=== PATIENT | male | born 1990 | race Caucasian/White ===

== ENCOUNTER 2019-06-05 20:41 | Emergency (ER) | payer OTHER, SELFPAY ==
[2019-06-05 20:46] VITALS: BP 137/73; PULSE 103; RESP 18; O2SAT 97
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
[2019-06-05 20:59] VITALS: BP 137/73; PULSE 88; RESP 18; O2SAT 97
== END 2019-06-05 21:00 | disposition home or self-care (01) ==
PROVIDERS: Emergency Provider Emergency Medicine; PCP Family Medicine
DX: R51 Headache (principal); V48.0XXA Car driver injured in noncollision transport accident in nontraffic accident, initial encounter; W22.8XXA Striking against or struck by other objects, initial encounter; Y99.0 Civilian activity done for income or pay
CPT/HCPCS: 99282

== ENCOUNTER 2021-03-10 23:48 | Emergency (ER) | payer BC, SELFPAY ==
[2021-03-11] VITALS: BP 118/84; PULSE 70; RESP 18; TEMP 36.4; O2SAT 98
--- NOTE | 2021-03-11 | RT.EKG_ITS ---
APPROVED REPORT Exam: Resting ECG Reason for Exam: loss of consciousness Patient Location: E HR:68 bpm ECG Measurements Heart Rate 68 AXIS AL 164 P 18 QRSd 100 QRS -10 QT 376 T -4 QTc 400 Conclusion Sinus rhythm...normal P axis, V-rate 60- 99 Borderline T abnormalities, diffuse leads...T flat/neg
--- NOTE | 2021-03-11 | DI.CT_ITS ---
Exam(s) CT BRAIN CTA EXAM: CT BRAIN CTA CLINICAL HISTORY: headache. TECHNIQUE: Imaging Protocol: Both noninfused and contrast infused CT scans of the brain were perform ed. IV Contrast Dose =85 cc Axial computed tomography images with coronal and sagittal reformatted images were created and review ed COMPARISON: No exams were available for comparison FINDINGS: There are no skull fractures nor fluid in the visualized paranasal sinuses. There is no evidence of intracranial hemorrhage, mass effect, or shift of midline structures. There are no extra-axial fluid collections. The ventricles are not enlarged or shifted and there is no blo od within the ventricular system nor within the basal cisterns. There appears to be some subtle hypodensity in the left cerebellar hemisphere, possibly significant. There are no ring enhancing lesions this level nor elsewhere in the brain. No abnormal meningeal en hancement. CTA: Field of view of this CTA study is from the skull base up. Neck was apparently not scanned. The internal carotid arteries are patent in the skull base-carotid canals as well as within the ayanna nous sinuses. Supraclinoid aspects of these vessels are patent and nonaneurysmal. Both A1 segments are patent. Anterior cerebral arteries are patent. No evidence of aneurysm at the level of the ante rior communicating artery. Both middle cerebral arteries are patent. No intraluminal thrombus nor aneurysms. In the posterior circulation the basilar artery is formed at the skull base by both vertebral arterie s and ascends in the midline with normal luminal diameter and no evidence of intraluminal thrombus no r dissection. Distally the basilar artery terminates as posterior cerebral arteries. There is no ev idence of aneurysm at the tip of the basilar artery. IMPRESSION: No evidence of significant stenosis nor occlusion of main intracranial arteries. No evidence of aneu rysms. No significant enhancing intracranial findings. RADIATION DOSE DELIVERED: 1,927.65mGy.cm Total DLP DATA REPOSITORY: All CT scans at this facility are submitted to the National Radiology Data Registry (NRDR) Dose Index Registry (DIR) with the [employer] (ACR). RADIATION OPTIMIZATION: All CT scans at this facility use at least one of these dose optimization te chniques: automated exposure control; mA and/or kV adjustment per patient size (includes targeted exa ms where dose is matched to clinical indication); or iterative reconstruction.
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
[2021-03-11 00:22] LABS: Abs Immature Grans 0.04 10^3/uL (0.0-0.06); Absolute Basophil Count 0.05 10^3/uL (0.0-0.2); Absolute Eosinophil Count 0.07 10^3/uL (0.0-0.7); Absolute Lymphocyte Count 2.13 10^3/uL (1.2-3.4); Absolute Monocyte Count 0.78 10^3/uL (0.1-0.8); Absolute Neutrophil Count 5.49 10^3/uL (1.2-6.7); Basophils % 0.6; Eosinophils % 0.8; HCT 43.1 % (40.0-50.0); HGB 15.3 g/dL (13.5-17.5); Immature Grans % 0.5; Lymphocytes % 24.9; MCH 30.2 pg (27.0-33.0); MCHC 35.5 % (32.0-36.0); MCV 85.2 fL (80-95); Monocytes % 9.1; Neutrophils % 64.1; Nucleated RBC 0 %; Platelet Count 279 10^3/uL (130-400); RBC 5.06 10^6/uL (4.36-5.78); RDW 12.2 % (11.8-14.1); RDW-SD 37.5 fL; WBC 8.56 10^3/uL (4.4-10.8)
[2021-03-11] MEDS: Acetaminophen 500 MG TAB 1000 MG PO (00:23)
[2021-03-11] MEDS: Dexamethasone 10 MG/ML VIAL IVP (00:24)
[2021-03-11] MEDS: Metoclopramide 10 MG/2 ML VIAL IVP (00:24)
[2021-03-11] MEDS: Omnipaque 350 MG/ML 100 ML BTL IJ (00:35)
[2021-03-11] MEDS: Normal Saline - Diluent 50 ML VIAL IV (00:35)
[2021-03-11 00:37] LABS: ALT 34 U/L (16-63); AST 24 U/L (15-37); Albumin 4.3 g/dL (3.4-5.0); Alkaline Phosphatase 72 U/L (46-116); Anion Gap 14.4 mmol/L (3-11); BUN 23 mg/dL (7-18); Bilirubin, Total 0.5 mg/dL (0.2-1.0); CO2 24.6 mmol/L (21.0-32.0); CREATININE 1.1 mg/dL (0.70-1.30); Calcium 8.7 mg/dL (8.5-10.1); Chloride 103 mmol/L (98-107); Glucose 114 mg/dL (74-106); Potassium 4.4 mmol/L (3.5-5.1); Sodium 142 mmol/L (136-145); Total Protein 7.7 g/dL (6.4-8.2)
--- NOTE | 2021-03-11 01:23 | DI.VRAD_ITS ---
PROCEDURE INFORMATION: Exam: CT Angiography Head With Contrast, Arteriography Exam date and time: 03/11/2021 12:09 AM Age: 30 years old Clinical indication: Pain; Headache TECHNIQUE: Imaging protocol: Computed tomography angiography of the head with contrast. Exam focused on the arteries. 3D rendering (Not supervised by radiologist): MIP and/or 3D reconstructed images were created by the technologist. COMPARISON: No relevant prior studies available. FINDINGS: ANTERIOR CIRCULATION: Right internal carotid artery: Unremarkable. Intracranial segment is patent with no significant stenosis. No aneurysm. Right middle cerebral artery: Unremarkable. No occlusion or significant stenosis. No aneurysm. Right anterior cerebral artery: Unremarkable. No occlusion or significant stenosis. No aneurysm. Left internal carotid artery: Unremarkable. Intracranial segment is patent with no significant stenosis. No aneurysm. Left middle cerebral artery: Unremarkable. No occlusion or significant stenosis. No aneurysm. Left anterior cerebral artery: Unremarkable. No occlusion or significant stenosis. No aneurysm. POSTERIOR CIRCULATION: Right vertebral artery: Unremarkable. No occlusion or significant stenosis. No aneurysm. Left vertebral artery: Unremarkable. No occlusion or significant stenosis. No aneurysm. Basilar artery: Unremarkable. No occlusion or significant stenosis. No aneurysm. Right posterior cerebral artery: Unremarkable. No occlusion or significant stenosis. No aneurysm. Left posterior cerebral artery: Unremarkable. No occlusion or significant stenosis. No aneurysm. Brain: No definite mass, mass effect, or midline shift. No abnormal enhancement Cerebral ventricles: No ventriculomegaly. Bones/joints: Unremarkable. No acute fracture. Soft tissues: Unremarkable. IMPRESSION: No large vessel stenosis or occlusion. Dictated and Authenticated by: Deng Patterson MD. Ordering:MARISSA Darby MD
[2021-03-11 01:38] VITALS: BP 121/88; PULSE 78; RESP 16; O2SAT 96
== END 2021-03-11 01:50 | disposition home or self-care (01) ==
PROVIDERS: Emergency Provider Emergency Medicine; PCP Family Medicine
DX: R51.9 Headache, unspecified (principal); R55 Syncope and collapse; R11.2 Nausea with vomiting, unspecified
CPT/HCPCS: 36415; 70496; 80053; 93005; 96374; 96375; 99285; 80320; 85025; 93010; 99284; J1100; J2765; J3490

== ENCOUNTER 2021-09-28 09:19 | Outpatient (CLI) | payer BC, SELFPAY ==
--- NOTE | 2021-09-28 09:15 | RT.EKG_ITS ---
APPROVED REPORT Exam: Resting ECG Reason for Exam: arrythmia Patient Location: O HR:68 bpm ECG Measurements Heart Rate 68 AXIS KS 179 P 19 QRSd 104 QRS -26 QT 377 T 2 QTc 402 Conclusion Sinus rhythm...normal P axis, V-rate 60- 99 Normal Electrocardiogram
== END 2021-09-28 09:20 | disposition home or self-care (01) ==
LOC: DI.CM 09:20
PROVIDERS: PCP Family Medicine; Visit Provider Family Medicine
DX: I49.9 Cardiac arrhythmia, unspecified (principal)
CPT/HCPCS: 93010

== ENCOUNTER 2021-10-22 03:39 | Outpatient (CLI) | payer BC, SELFPAY ==
[2021-10-22 11:27] LABS: ALT 30 U/L (16-63); AST 19 U/L (15-37); Albumin 4.3 g/dL (3.4-5.0); Alkaline Phosphatase 67 U/L (46-116); Anion Gap 9.4 mmol/L (3-11); BUN 23 mg/dL (7-18); Bilirubin, Total 0.4 mg/dL (0.2-1.0); CO2 28.6 mmol/L (21.0-32.0); CREATININE 1.2 mg/dL (0.70-1.30); Calculated LDL 172 mg/dL (<100); Chloride 105 mmol/L (98-107); Cholesterol 237 mg/dL (<200); Glucose 88 mg/dL (74-106); HDL Cholesterol 41 mg/dL (40-60); Potassium 4.1 mmol/L (3.5-5.1); Sodium 143 mmol/L (136-145); Total Protein 7.1 g/dL (6.4-8.2); Triglyceride 123 mg/dL (<150)
== END 2021-10-22 03:40 | disposition home or self-care (01) ==
LOC: LBO 03:39
PROVIDERS: PCP Family Medicine; Visit Provider Family Medicine
DX: Z00.00 Encounter for general adult medical examination without abnormal findings (principal)
CPT/HCPCS: 36415; 80053; 80061

== ENCOUNTER 2022-10-15 20:53 | Outpatient (REF) | payer BC, SELFPAY ==
[2022-10-15 21:28] LABS: HCT 43.8 % (40.0-50.0); HGB 15.2 g/dL (13.5-17.5); MCH 29.4 pg (27.0-33.0); MCHC 34.7 % (32.0-36.0); MCV 85 fL (80-95); MPV 10.6 fL (8.0-11.0); Platelet Count 323 10^3/uL (130-400); RBC 5.17 10^6/uL (4.36-5.78); RDW 12.1 % (11.8-14.1); RDW-SD 37.1 fL; WBC 9.74 10^3/uL (4.4-10.8)
[2022-10-15 21:51] LABS: TSH (W/Ref FT4) 2.14 uIU/mL (0.36-3.74)
[2022-10-15 22:30] LABS: Vitamin B12 602 pg/mL (193-986)
== END 2022-10-15 20:54 | disposition home or self-care (01) ==
LOC: LBN 20:53
PROVIDERS: PCP Family Medicine; Visit Provider Nurse Practitioner Family
DX: R53.83 Other fatigue (principal); R20.2 Paresthesia of skin; M79.601 Pain in right arm; M79.602 Pain in left arm
CPT/HCPCS: 85027; 82607; 84443

== ENCOUNTER → 2023-11-26 03:16 | Outpatient (CLI) | payer BC, SELFPAY ==
--- NOTE | 2023-11-26 08:00 | DI.RAD_ITS ---
Exam(s) RF BARIUM SWALLOW EXAM: RF BARIUM SWALLOW CLINICAL HISTORY: globus sensation,R09.A2 TECHNIQUE: 2D and realtime digital imaging was performed. CONTRAST MATERIAL: Oral barium contrast was administered. COMPARISON: No exams were available for comparison FINDINGS: CHEST X-RAY: The heart and pulmonary vasculature are within normal limits. The lungs are clear. No pl eural effusion or pneumothorax is present. The bones are within normal limits for the patient's age. ESOPHAGRAM: The esophagus is patent with no evidence for erosions, fold thickening, strictures, or ma sses. With regards to the motility, there is a normal primary stripping wave. No tertiary contraction s were noted. There is a tiny hiatal hernia. No gastroesophageal reflux. A barium tablet passed int o the stomach without complication. IMPRESSION: Small hiatal hernia, otherwise unremarkable examination. RADIATION DOSE DELIVERED: leny Stern=23.3 mGy
[2023-11-26] MEDS: Barium Sulfate 700 MG TAB PO (10:06)
[2023-11-26] MEDS: Barium Sulfate 98% W/W 140 ML BTL PO (10:07)
[2023-11-26] MEDS: Barium Sulfate 60% W/V 355 ML BTL PO (10:09)
[2023-11-26] MEDS: Simethicone/Sod Bicarb/Cit Ac, 4 gram PACKET 1 PACKET PO (10:10)
== END ==
PROVIDERS: PCP Family Medicine; Visit Provider Family Medicine
DX: K44.9 Diaphragmatic hernia without obstruction or gangrene (principal)
CPT/HCPCS: 74221; J3490

== ENCOUNTER 2024-07-07 02:33 | Outpatient (CLI) | payer BC, SELFPAY ==
--- NOTE | 2024-07-07 07:02 | DI.MRI_ITS ---
Exam(s) MR BRAIN WO EXAM: MR BRAIN WO CLINICAL HISTORY: chronic headache,r51.9 TECHNIQUE: Multiplanar multisequence MRI of the brain was performed. COMPARISON: CT CT BRAIN CTA from 03/11/2021 FINDINGS: CEREBRAL PARENCHYMA: There is no evidence of intracranial hemorrhage, mass effect, or shift of midline structures. There are no extra-axial fluid collections. Ventricles are not enlarged or shifted. There is no significant focal signal abnormality in the cerebellar hemispheres nor within the jody, m idbrain, and thalami. There is no abnormal signal abnormality in the periventricular white matter. There is no significant focal signal abnormality evident on diffusion imaging to suggest acute ischem ic event. PITUITARY GLAND: No mass nor parasellar abnormality. No obvious abnormality in the cavernous sinuses. FLOW VOIDS: The expected flow void are noted. No evidence of obvious aneurysm nor obvious vascular ma lformation. PARANASAL SINUSES: The visualized paranasal sinuses appear unremarkable. No obvious finding ORBITS: No obvious findings. IMPRESSION: No significant intracranial findings on this noninfused MRI scan of the brain. DATA REPOSITORY:
== END 2024-07-07 02:53 ==
LOC: DI 02:33
PROVIDERS: PCP Family Medicine; Visit Provider Family Medicine
DX: R51.9 Headache, unspecified (principal)
CPT/HCPCS: 70551

== ENCOUNTER 2024-10-22 08:03 | Emergency (ER) | payer BC, SELFPAY ==
[2024-10-22] VITALS (51 sets, daily range): BP systolic 96–117; BP diastolic 53–67; PULSE 45–99; RESP 16; TEMP 36.8; O2SAT 95–99
--- NOTE | 2024-10-22 08:15 | RT.EKG_ITS ---
APPROVED REPORT Exam: Resting ECG Reason for Exam: syncope Patient Location: E HR:94 bpm ECG Measurements Heart Rate 94 AXIS KS 153 P 20 QRSd 103 QRS -26 QT 363 T 1 QTc 448 Conclusion Sinus rhythm...normal P axis, V-rate 60- 99 Multiple ventricular premature complexes...V complexes w/ short R-R intervls Nonspecific T abnormalities, diffuse leads...T <-0.10mV, ant/lat/inf
[2024-10-22] MEDS: Lactated Ringers 1,000 ML 1000 ML IV (08:36)
[2024-10-22 08:47] LABS: Abs Immature Grans 0.04 10^3/uL (0.0-0.06); Absolute Basophil Count 0.04 10^3/uL (0.0-0.2); Absolute Eosinophil Count 0.01 10^3/uL (0.0-0.7); Absolute Lymphocyte Count 0.52 10^3/uL (1.2-3.4); Absolute Monocyte Count 1.04 10^3/uL (0.1-0.8); Absolute Neutrophil Count 10.19 10^3/uL (1.2-6.7); Basophils % 0.3 %; Eosinophils % 0.1 %; HCT 46.9 % (40.0-50.0); Immature Grans % 0.3 %; Lymphocytes % 4.4 %; MCH 29.3 pg (27.0-33.0); MCHC 34.1 % (32.0-36.0); MCV 86 fL (80-95); MPV 9.9 fL (8.0-11.0); Monocytes % 8.8 %; Neutrophils % 86.1 %; Platelet Count 270 10^3/uL (130-400); RBC 5.47 10^6/uL (4.36-5.78); RDW 12.2 % (11.8-14.1); RDW-SD 38.3 fL; WBC 11.84 10^3/uL (4.4-10.8)
--- NOTE | 2024-10-22 08:55 | ED.GENADUL_ITS ---
Discharge Plan Disposition Patient Disposition: Home Condition: Stable Discharge Details Clinical Impression: Nausea vomiting and diarrhea, Gastroenteritis, Hypovolemia, Syncope Primary Care Provider: Laurence Huffman ED Provider: Da Franz Home Meds and New Rx's Prescriptions: New ondansetron 4 mg tablet,disintegrating 4 mg PO Q8H PRNQty: 10 0RF Continued sertraline 100 mg tablet 100 mg PO DAILY Qty: 90 3RF multivitamin Tablet 1 tab PO DAILY bupropion HCl 150 mg tablet sustained-release 12 hr 300 mg PO DAILY Qty: 180 3RF lisdexamfetamine 30 mg capsule 30 mg PO DAILY MDD 40mg Qty: 30 0RF Discontinued esomeprazole magnesium 40 mg capsule,delayed release(DR/EC) 40 mg PO DAILY Qty: 60 3RF Discharge Instructions Instructions: Syncope (fainting), Viral gastroenteritis in adults, Dehydration, Adult ED Additional Instructions: Please drink small amounts of fluid, frequently, in order to stay hydrated. Take nausea medicine as prescribed if needed for nausea. Please follow-up with your primary care physician. Call today. Return to the emergency department immediately for any worsening or new concerning symptoms. Stand Alone Forms: Work Release Referrals: Laurence Huffman MD [Primary Care Provider] - [facility] General Mode of arrival: ambulatory . Date/Time Provider Initiated Documentation: 10/22/24 08:17 . Limitations to Documentation: no limitations . Information obtained by: patient and family . HPI Narrative: HISTORY OF PRESENT ILLNESS 34-year-old male presents with abdominal pain, syncope, and dehydration. Accompanied by . Intermittent, sharp abdominal pain for 2 days, worsened last night. Nausea without vomiting unless self-induced. Severe vomiting episode last night relieved pain. Vomited 5-6 times since yesterday. Significant diarrhea yesterday and this morning. Daughters had similar symptoms. No recent antibiotics or travel. 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 Non- smoker, rare alcohol use, no drug use. This morning, dark urine and syncope after urination, resulting in a fall. Uncertain of head injury. found him on the ground. Profuse sweating prior to episode. Currently feels unwell, slow motion sensation, intermittent sharp abdominal pain. observed pallor. No rashes. History of similar fainting episode attributed to dehydration. Related Data Home Medications ?Medication ?Instructions ?Recorded ?Confirmed multivitamin 1 tab PO DAILY 03/14/21 10/22/24 sertraline 100 mg tablet 100 mg PO DAILY #90 tabs 10/24/23 10/22/24 bupropion HCl 150 mg tablet,12 hr 300 mg (2 x 150 mg) PO DAILY #180 04/26/24 10/22/24 sustained-release tabs lisdexamfetamine 30 mg capsule 30 mg PO DAILY #30 caps 10/07/24 10/22/24 ondansetron 4 mg disintegrating 4 mg PO Q8H PRN #10 tabs 10/22/24 tablet Previous Rx's ?Medication ?Instructions ?Recorded sertraline 100 mg tablet 100 mg PO DAILY #90 tabs 10/24/23 bupropion HCl 150 mg tablet,12 hr 300 mg (2 x 150 mg) PO DAILY #180 04/26/24 sustained-release tabs lisdexamfetamine 30 mg capsule 30 mg PO DAILY #30 caps 10/07/24 ondansetron 4 mg disintegrating 4 mg PO Q8H PRN #10 tabs 10/22/24 tablet Allergies Allergy/AdvReac Type Severity Reaction Status Date / Time promethazine HCl (From AdvReac Intermediate CAUSED Verified 10/22/24 08:11 Phenergan) SHAKES trazodone AdvReac Intermediate Nausea Verified 10/22/24 08:11 General Stated Complaint: Nausea/Vomit/Diar CANDI: 3 Review of Systems Narrative: REVIEW OF SYSTEMS Positive for abdominal pain, vomiting, diarrhea, and syncope. Negative for rash. Exam Narrative Exam Narrative: PHYSICAL EXAM General Appearance: Normal. Vital signs: Heart rate 60 bpm. HEENT: Dry tongue and lips. Respiratory: Clear lung sounds. Cardiovascular: No heart murmurs. Regular rate and rhythm. Gastrointestinal: Mild epigastric tenderness, normal bowel sounds. No peritoneal findings. Extremities: No leg swelling. Skin: Warm and dry, no rash. Neurological: Normal. Course Vital Signs Vital signs: Vital Signs Temperature 36.8 C 10/22/24 08:06 Pulse 45 L 10/22/24 08:06 Respiratory Rate 16 10/22/24 08:06 Blood Pressure 98/61 L 10/22/24 08:06 Pulse Oximetry 97 10/22/24 08:06 Temperature 36.8 C 10/22/24 08:06 Temperature Source Oral 10/22/24 08:06 Pulse 45 L 10/22/24 08:06 Respiratory Rate 16 10/22/24 08:06 Blood Pressure 98/61 L 10/22/24 08:06 Pulse Oximetry 97 10/22/24 08:06 Oxygen Delivery Method Room Air 10/22/24 08:06 Oxygen Flow Rate 0 10/22/24 08:06 Lab/Test Results Lab/Test Results: Laboratory Tests Range/Units 10/22/24 08:34 WBC (4.4-10.8) 10^3/uL 11.84 H RBC (4.36-5.78) 10^6/uL 5.47 Hgb (13.5-17.5) g/dL 16.0 Hct (40.0-50.0) % 46.9 MCV (80-95) fL 86 MCH (27.0-33.0) pg 29.3 MCHC (32.0-36.0) % 34.1 RDW (11.8-14.1) % 12.2 Plt Count (130-400) 10^3/uL 270 MPV (8.0-11.0) fL 9.9 Immature Gran % % 0.3 Neutrophils % % 86.1 Lymphocytes % % 4.4 Monocytes % % 8.8 Eosinophils % % 0.1 Basophils % % 0.3 Nucleated RBC % (0.0-0.3) % 0.0 Absolute Neutrophils (1.2-6.7) 10^3/uL 10.19 H Absolute Lymphocytes (1.2-3.4) 10^3/uL 0.52 L Absolute Monocytes (0.1-0.8) 10^3/uL 1.04 H Absolute Eosinophils (0.0-0.7) 10^3/uL 0.01 Absolute Basophils (0.0-0.2) 10^3/uL 0.04 Medical Decision Making ASSESSMENT AND PLAN Initial Assessment: Patient presents with vomiting and diarrhea since yesterday, significant dehydration on exam, and a syncopal episode after urination. Differential Diagnosis: - Gastroenteritis: Suspect due to history of vomiting and diarrhea. Plan to administer IV fluids, Zofran, and Pepcid. - Biliary disease: Considered due to abdominal pain. No immediate imaging planned, will reassess. - Pancreatitis: Considered due to abdominal pain. No immediate imaging planned, will reassess. Will check lipase. ED Course: - IV fluids administered. - Blood work ordered: CMP and CBC. - EKG performed and reviewed by me: Sinus rhythm 94 bpm, multiple PVCs, nonspecific T wave abnormalities. - Administered Zofran and Pepcid via IV. Final Assessment: Patient with gastroenteritis complicated by dehydration, likely causing syncope. Treatment included IV fluids, antiemetics, and monitoring. On reassessment, patient feeling much better. Requesting discharge. Patient ambulated without dysfunction and remained hemodynamically stable. He is tolerating p.o. intake. Clinical Impression: - Gastroenteritis - Dehydration - Syncope Disposition: - Discharge - Follow-Up: Advised patient to follow up with primary care physician for further evaluation and management. MDM Components Evaluation: - Number of Differential Diagnoses or Management Options: Gastroenteritis, biliary disease, pancreatitis. - Amount and Complexity of Data Reviewed: Blood work (CMP, CBC), EKG. - Risk of Complication and Morbidity or Mortality: Moderate due to dehydration and potential for recurrent syncope. This document was written with the assistance of PRISCILA Fried. The patient consented to its use. Lab Data Lab results reviewed: Yes I reviewed the patient's lab results. Labs: Laboratory Tests Range/Units 10/22/24 08:34 WBC (4.4-10.8) 10^3/uL 11.84 H RBC (4.36-5.78) 10^6/uL 5.47 Hgb (13.5-17.5) g/dL 16.0 Hct (40.0-50.0) % 46.9 MCV (80-95) fL 86 MCH (27.0-33.0) pg 29.3 MCHC (32.0-36.0) % 34.1 RDW (11.8-14.1) % 12.2 Plt Count (130-400) 10^3/uL 270 MPV (8.0-11.0) fL 9.9 Immature Gran % % 0.3 Neutrophils % % 86.1 Lymphocytes % % 4.4 Monocytes % % 8.8 Eosinophils % % 0.1 Basophils % % 0.3 Nucleated RBC % (0.0-0.3) % 0.0 Absolute Neutrophils (1.2-6.7) 10^3/uL 10.19 H Absolute Lymphocytes (1.2-3.4) 10^3/uL 0.52 L Absolute Monocytes (0.1-0.8) 10^3/uL 1.04 H Absolute Eosinophils (0.0-0.7) 10^3/uL 0.01 Absolute Basophils (0.0-0.2) 10^3/uL 0.04 Sodium (136-145) mmol/L 140 Potassium (3.5-5.1) mmol/L 4.1 Chloride (98-107) mmol/L 105 Carbon Dioxide (21.0-32.0) mmol/L 31.9 Anion Gap (3-11) mmol/L 3.1 BUN (7-18) mg/dL 24 H Creatinine (0.70-1.30) mg/dL 1.5 H Est GFR (CKD-EPI 2020) (mL/min/1.73m2) 62.65 Glucose (74-106) mg/dL 105 Calcium (8.5-10.1) mg/dL 8.9 Magnesium (1.8-2.4) mg/dL 2.0 Total Bilirubin (0.2-1.0) mg/dL 0.50 AST (15-37) U/L 16 ALT (16-63) U/L 30 Alkaline Phosphatase (46-116) U/L 78 Troponin I (<or=76) ng/L < 4 Total Protein (6.4-8.2) g/dL 7.2 Albumin (3.4-5.0) g/dL 4.0 Lipase (<78) U/L 33 Quality:SDOH Health Related Social Needs: No Data to Display PFSH All Active Problems (Updated 10/22/24 @ 11:14 by Da Franz MD) Syncope (Chronic) Hypovolemia (Acute) Gastroenteritis (Acute) Nausea vomiting and diarrhea (Acute) Adult ADHD (Acute) Elevated BP without diagnosis of hypertension (Acute) Anxiety (Acute 10/28/17) Atopic dermatitis (Chronic) Depression (Chronic) Headache (Acute) Obesity due to excess calories (Acute) improving with diet change Mild obstructive sleep apnea (Chronic) using CPAP - forgets Medical History (Updated 10/22/24 @ 11:14 by Da Franz MD) 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) Insomnia (10/28/17) Family History (Updated 04/22/24 @ 15:29 by Genia Thakur) Father Stroke Maternal Grandfather Cancer Paternal Grandfather Alcohol use disorder Maternal Grandmother Diabetes Social History Smoking/Tobacco Use Status: Current every day Tobacco Type: smokeless tobacco Tobacco: How many years used: 11 Smokeless tobacco user: chewing tobacco and snuff Quit status: has quit before Second Hand Exposure: No Counseling given: provider counseling Smoking risk assessment performed?: Yes Alcohol Intake: current Alcohol Intake frequency: holidays/special occasions only Alcohol type: beer and hard liquor Details: 6 or more drinks monthly or less Drug use: Never Substance use type: does not use Adopted: No Caregiver/Support person: No Household members: spouse and children Housing: house Number of Children: 2 Communication Needs: None Education Level: college Details: BS in criminal justice Do you need help understanding health information?: Rarely 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 Pets and animals: Yes Pets and animals: cat(s) and dog(s) Sexually active: Yes Do you think of yourself as: straight/heterosexual Current gender identity: male What is your relationship status?: How often do you talk on the phone with friends or family?: three or more times per week How often do you get together with friends or relatives?: twice per week How often do you attend samaritan or zoroastrianism services?: 1-3 times per year Do you belong to any clubs or organized social groups?: no Panel score (0-1 are the most socially isolated patients): 2 What type of physical activity do you participate in: weight lifting and other Details: Hunting Duration: 30-45 minutes/day Frequency: 3-4 times per week Shara/Denominational: Yarsani Special shara needs: No Seatbelt use: sometimes Helmet use: No Drive intox or ride w/intox entry driver operator: No Firearms in home: Yes Firearms unloaded and locked: Yes Do you feel safe at home: Yes Do you feel safe in your relationship?: Yes Victim of physical abuse: No Victim of emotional abuse: No Victim of sexual abuse: No Would you like helpful sources: No PAWSS Have you Been Recently Intoxicated or Drunk Within the Last 30 days?: No Have you Ever Experienced Previous Episodes of Alcohol Withdrawal?: No Have you ever Experienced Withdrawal Seizures?: No Have you ever Experienced Delirium Tremens(DT)s?: No Have you ever undergone Alcohol Rehabilitation Treatment (i.e, inpt ot outpatient treatment programs)?: No Have you ever Experienced Blackouts?: No Have you ever Combined Alcohol with other Downers within the last 90 days?: No Have you ever Combined Alcohol with any other Substance of Abuse during the last 90 days?: No Result: 0
[2024-10-22 09:16] LABS: ALT 30 U/L (16-63); AST 16 U/L (15-37); Alkaline Phosphatase 78 U/L (46-116); Anion Gap 3.1 mmol/L (3-11); BUN 24 mg/dL (7-18); CO2 31.9 mmol/L (21.0-32.0); CREATININE 1.5 mg/dL (0.70-1.30); Calcium 8.9 mg/dL (8.5-10.1); Chloride 105 mmol/L (98-107); Estimated GFR 62.65 (mL/min/1.73m2); Glucose 105 mg/dL (74-106); Potassium 4.1 mmol/L (3.5-5.1); Sodium 140 mmol/L (136-145); Total Protein 7.2 g/dL (6.4-8.2)
[2024-10-22 09:20] LABS: Troponin I < 4 ng/L (<or=76)
[2024-10-22] MEDS: Ondansetron 4 MG/2 ML VIAL IVP (09:39)
[2024-10-22] MEDS: Famotidine 20 MG/2 ML VIAL IVP (09:40)
[2024-10-22 09:42] LABS: Lipase 33 U/L (<78)
== END 2024-10-22 11:40 | disposition home or self-care (01) ==
PROVIDERS: Emergency Provider Student in an Organized Health Care Education/Training Program; PCP Family Medicine
DX: K52.9 Noninfective gastroenteritis and colitis, unspecified (principal); E86.1 Hypovolemia; R55 Syncope and collapse; R11.2 Nausea with vomiting, unspecified; R19.7 Diarrhea, unspecified
CPT/HCPCS: 36415; 80053; 83690; 93005; 96361; 96374; 96375; 99284; 83735; 84484; 85025; 93010; J2405

== ENCOUNTER 2024-10-28 10:53 | Outpatient (CLI) | payer BC, SELFPAY ==
--- NOTE | 2024-10-28 09:45 | DI.RAD_ITS ---
Exam(s) XR SHOULDER RT COMPLETE 2+V EXAM: XR SHOULDER RT COMPLETE 2+V CLINICAL HISTORY: right AC joint pain M25.511 PAIN RT SHOULDER G89.29 CHRONIC PAIN. TECHNIQUE: 2D digital imaging was performed. Five views. COMPARISON: CR LEFT SHOULDER COMPLETE from 09/24/2011 FINDINGS: BONES: No acute fracture is present. No bony destructive lesion is seen. JOINTS: No dislocation present. The AC joint is not widened. No significant spurring. The glenohum eral joint space is maintained. SOFT TISSUE: Normal. IMPRESSION: Unremarkable radiographs of the right shoulder. DATA REPOSITORY: RADIATION DOSE DELIVERED:
== END 2024-10-28 11:13 ==
LOC: DI 10:53
PROVIDERS: PCP Family Medicine; Visit Provider Family Medicine
DX: M25.511 Pain in right shoulder (principal); G89.29 Other chronic pain
CPT/HCPCS: 73030

== ENCOUNTER 2024-11-23 02:11 | Outpatient (CLI) | payer BC, SELFPAY ==
--- NOTE | 2024-11-23 14:20 | DI.MRI_ITS ---
Exam(s) MR UPPER JOINT RT WO EXAM: MR UPPER JOINT RT WO CLINICAL HISTORY: Right shoulder pain,M25.511 TECHNIQUE: Multiplanar multisequence MRI of the shoulder was performed. COMPARISON: CR XR SHOULDER RT COMPLETE 2+V from 10/28/2024 FINDINGS: MARROW:There is no evidence of fracture, Hill-Sachs deformity, nor ominous osseous lesions. GLENOHUMERAL JOINT: No joint effusion nor obvious loose intra-articular bodies. No chondral defects. No osteophytes. There are no degenerative subarticular cysts in the osseous glenoid. 2 tiny degener ative cysts are noted in the greater tuberosity region. ROTATOR CUFF MECHANISM: AC JOINT/ACROMIUM: There is subarticular bone edema seen in the clavicular side of the AC joint. Ther e is no fracture or widening of the joint. No downgoing osteophytes. There are no degenerative subart icular cysts on either side of the AC joint.. There is no evidence of os acromiale. Are no enthesophytes within the coracoclavicular ligaments. Supraspinatus: There is an area of signal abnormality in the lateral aspect of the anterior supraspin atus tendon just above the greater tuberosity consistent with tendinitis. There does not appear to be high-grade tearing nor muscle atrophy. There is, however, a tiny amount of fluid in the anterior asp ect of the subacromial space at this level. Infraspinatus: Mild insertional tendinitis. No tearing. No atrophy. Teres Minor: Intact. No evidence of tear nor muscle atrophy. Subscapularis/anterior cuff: Intact. No abnormal signal at the level of the multipennate insertional fibers. No significant tear nor atrophy. BICEPS TENDON: Exhibits normal position within the intertubercular groove. No evidence of tear. No e vidence of tenosynovitis. LABRUM: There is some intrasubstance signal abnormality within the superior labrum posterior to the b iceps insertion site.. Possible subtle SLAP-type labral tear. There is adjacent focal fluid signal ab normality and this extends over the osseous glenoid, this possibly representing a small paralabral cy st. There is also some signal abnormality in the most superior aspect of the posterior labrum. The re mainder of the posterior labrum appears unremarkable. There is some signal abnormality in the anterio r labrum consistent with probable tearing. Inferior labrum appears intact although there is a small c ystic structure just below the inferior labrum which may be another paralabral cyst. The inferior gle nohumeral ligament appears intact There no abnormal intraosseous signal in the anterior inferior osseous glenoid. QUADRILATERAL SPACE: No evidence of mass in the region of the axillary nerve and dorsal circumflex hu meral vessels. Visualized triceps muscle at this level appears unremarkable. IMPRESSION: 1. There is a focal area of tendinitis in the distal aspect of the anterior supraspinatus tendon just above the insertional onto the greater tuberosity. There is a small amount of fluid in the anterior aspect of the subacromial space at this level. There does not appear to be a full-thickness tear of t he rotator cuff tendon and therefore this may represent a small amount of bursal fluid. There is also mild tendinitis signal in the infraspinatus, also without high-grade tear nor muscle atrophy. Anteri or cuff/subscapularis appears unremarkable. 2. There is subtle evidence of probable labral tearing superiorly and upper anteriorly. There appear to be small paralabral cysts. There is no evidence of biceps tendon tear nor displacement nor biceps tenosynovitis. 3. Glenohumeral joint appears unremarkable. There is some subarticular bone edema on the clavicular s rosa of the AC joint. Mild intra-articular increased signal also noted in the AC joint but the AC join t is not distracted. There are no downgoing osteophytes nor degenerative subarticular cysts at this a rticulation.. DATA REPOSITORY:
== END 2024-11-23 02:31 ==
LOC: DI 02:11
PROVIDERS: PCP Family Medicine; Visit Provider Family Medicine
DX: M25.511 Pain in right shoulder (principal); G89.29 Other chronic pain
CPT/HCPCS: 73221

== ENCOUNTER 2025-07-13 10:28 | Outpatient (CLI) | payer BC, SELFPAY ==
--- NOTE | 2025-07-13 09:02 | DI.RAD_ITS ---
Exam(s) XR CLAVICLE LT LIMITED 1V EXAM: XR CLAVICLE LT LIMITED 1V CLINICAL HISTORY: AC joint pain TECHNIQUE: 2D digital imaging was performed of the left clavicle. One images were obtained. AP and axial views were obtained. COMPARISON: CR,RF RF BARIUM SWALLOW from 11/26/2023 FINDINGS: BONES: No acute fracture is present. No bony destructive lesion is seen. JOINTS: No dislocation present. There are mild degenerative changes seen at the acromioclavicular joint. SOFT TISSUE: Normal. IMPRESSION: Mild degenerative changes seen at the acromioclavicular joint. DATA REPOSITORY: RADIATION DOSE DELIVERED:
== END 2025-07-13 10:29 | disposition home or self-care (01) ==
LOC: DIORS 10:29
PROVIDERS: PCP Family Medicine; Visit Provider Physician Assistant
DX: M25.512 Pain in left shoulder (principal); M19.012 Primary osteoarthritis, left shoulder
CPT/HCPCS: 73000

== ENCOUNTER 2025-08-18 20:16 | Emergency (ER) | payer BC, SELFPAY ==
[2025-08-18] VITALS (13 sets, daily range): BP systolic 123–143; BP diastolic 79–106; PULSE 54–87; RESP 15–23; TEMP 36.6; O2SAT 95–99
--- NOTE | 2025-08-18 20:15 | RT.EKG_ITS ---
APPROVED REPORT Exam: Resting ECG Reason for Exam: dizziness Patient Location: E HR:85 bpm ECG Measurements Heart Rate 85 AXIS PA 158 P 32 QRSd 99 QRS -30 QT 364 T -1 QTc 433 Conclusion Sinus rhythm...normal P axis, V-rate 60- 99 Ventricular trigeminy...trigeminy string>6 w/ V complexes Left axis deviation...QRS axis (-30,-90)
--- NOTE | 2025-08-18 21:26 | W.ED.GENAD ---
Discharge Plan Disposition Patient Disposition: Home Condition: Stable Discharge Details Clinical Impression: Light-headedness, Premature ventricular beat Primary Care Provider: Laurence Huffman ED Provider: Jorge Hauser Home Meds and New Rx's Prescriptions: Continued bupropion HCl 150 mg tablet sustained-release 12 hr 300 mg PO DAILY Qty: 180 3RF multivitamin Tablet 1 tab PO DAILY lisdexamfetamine 30 mg capsule 30 mg PO DAILY MDD 40mg Qty: 28 0RF sertraline 100 mg tablet 200 mg PO DAILY Discharge Instructions Instructions: Ventricular premature beats Additional Instructions: Workup in the ER does not reveal any obvious emergent process. I know that you are concerned about your blood pressure but it has not been emergently high while here in the ER. I do recommend checking your blood pressure 2 or 3 times a day under the same circumstances and keeping a log, this will help your primary care provider recognize any potential trends. I do recommend you monitor your stress levels, sleep, caffeine intake, and nicotine use. These may all be making your symptoms worse. Lastly, your EKG does reveal premature ventricular beats. Your primary care provider may order you a Holter monitor to further evaluate the frequency of these or any other possible arrhythmias. Please watch for new or worsening symptoms and return to the ER for any concerns. Otherwise I recommend following up with your primary care provider later this month as already scheduled. You may want to contact them tomorrow to make them aware of your ER visit to see if they would like to see you sooner. Stand Alone Forms: Portal Information Discharge Data Discharge Date/Time-TO BE ENTERED AT DEPARTURE: 08/18/25 22:51 HPI General Mode of arrival: ambulatory. Date/Time Provider Initiated Documentation: 08/18/25 20:31. Limitations to Documentation: no limitations. Information obtained by: patient and family. HPI Narrative: Describes intermittent changes in the blood pressure, lightheadedness, generalized weakness, fatigue for quite some time, 5-10 pound weight gain over the past couple days, and intermittent chest pressure over the past couple days, has been present today most of the afternoon. He also reports chronic headaches. He admits to increased stress, typically 3 cups of caffeine a day, poor sleep schedule, works shift work, and uses nicotine pouches daily. Alcohol occasionally. Denies recent illness or trauma Related Data Home Medications ?Medication ?Instructions ?Recorded ?Confirmed multivitamin 1 tab PO DAILY 03/14/21 08/18/25 bupropion HCl 150 mg tablet,12 hr 300 mg (2 x 150 mg) PO DAILY #180 04/29/25 08/18/25 sustained-release tabs lisdexamfetamine 30 mg capsule 30 mg PO DAILY #28 caps 08/08/25 08/18/25 sertraline 100 mg tablet 200 mg PO DAILY 08/18/25 08/18/25 Previous Rx's ?Medication ?Instructions ?Recorded bupropion HCl 150 mg tablet,12 hr 300 mg (2 x 150 mg) PO DAILY #180 04/29/25 sustained-release tabs lisdexamfetamine 30 mg capsule 30 mg PO DAILY #28 caps 08/08/25 Allergies Allergy/AdvReac Type Severity Reaction Status Date / Time promethazine HCl (From AdvReac Intermediate CAUSED Verified 08/18/25 20:26 Phenergan) SHAKES trazodone AdvReac Intermediate Nausea Verified 08/18/25 20:26 General Stated Complaint: Chest Pain CANDI: 3 Review of Systems Constitutional Constitutional: Reports fatigue, Denies fever(s), Reports headache(s) and Reports weakness (Generalized, no focal) Eyes Eyes: Denies change in vision ENT Ears, Nose, Mouth, and Throat: Reports headache(s) and Denies neck pain Cardiovascular Cardiovascular: Reports chest pain (Pressure) and Denies dyspnea Respiratory Respiratory: Denies cough and Denies dyspnea Gastrointestinal Gastrointestinal: Denies abdominal pain, Reports nausea (Occasional) and Denies vomiting Genitourinary Genitourinary: Reports other (Urinates multiple times a day, wonders if this is in excess) Musculoskeletal Musculoskeletal: Denies back pain, Denies neck pain, Denies numbness and Reports tingling (Occasional bilateral upper extremities) Integumentary/Breasts Skin/Breast: Denies rash Neurologic Neurologic: Reports headache(s), Denies numbness, Reports tingling (Occasional bilateral upper extremities) and Reports weakness (Generalized, no focal) Psychiatric Psychiatric: Reports anxiety and Reports depression Endocrine Endocrine: Reports fatigue Exam Const General: cooperative, healthy appearing, comfortable and no acute distress Orientation: alert, awake and oriented x3 HENMT Head: normal to inspection, normocephalic and atraumatic Ears: hearing grossly normal bilaterally, external ears normal, TM's normal bilaterally and EAC's normal Face and sinus: normal facial exam Mouth: oral mucosae normal and moist mucous membranes Throat: posterior oropharynx normal Eyes General: appearance normal, both eyes and all related structures Alignment and Position: alignment normal Periorbital: periorbital findings normal Eyelids: eyelids normal Conjunctivae: conjunctivae normal Sclera: sclerae normal Cornea: corneas normal Pupils: PERRL EOM: EOM intact bilaterally Direct ophthalmoscopy: normal light reflex Neck Neck: normal visual inspection, full ROM, no meningeal signs, trachea midline and supple Resp Effort & Inspection: normal respiratory effort and able to speak in complete sentences Auscultation: clear to auscultation bilaterally Cardio Rate: regular rate Rhythm: regular rhythm GI Inspection: normal to inspection Palpation: soft, not firm, no guarding, not rigid and nontender Auscultation: normal bowel sounds Back/Spine/Pelvis Back: no CVA tenderness and No back tenderness Skin General skin exam: no rashes or lesions noted Neuro General: patient alert, patient awake, patient oriented x3, moves all extremities and no focal motor deficits Cognition: normal cognition Speech: speech normal Gait: normal gait Motor: muscle tone normal throughout Sensory Exam: no sensory deficits noted Extrem General: normal to inspection, full ROM, capillary refill normal, no pedal edema, no calf tenderness and normal gait Psych Appearance: grossly normal Mental Status: mental status grossly normal Speech and Movement: speech and movement normal Mood: congruent mood Affect: normal affect Attitude: cooperative Thought Process: normal Thought Content: normal Insight: insight good Judgment: judgment good Course Vital Signs Vital signs: Vital Signs Temperature 36.6 C 08/18/25 20:24 Pulse 79 08/18/25 20:24 Respiratory Rate 16 08/18/25 20:24 Blood Pressure 123/85 08/18/25 20:24 Pulse Oximetry 98 08/18/25 20:24 Temperature 36.6 C 08/18/25 20:24 Pulse 71 08/18/25 21:01 Pulse 79 08/18/25 21:01 Respiratory Rate 22 08/18/25 21:01 Respiratory Effort Normal 08/18/25 20:38 Respiratory Depth Normal 08/18/25 20:38 Respiratory Pattern Normal 08/18/25 20:38 Blood Pressure 143/89 H 08/18/25 21:01 Blood Pressure Mean 105 08/18/25 21:01 Pulse Oximetry 97 08/18/25 21:01 Pain Level 0 08/18/25 20:24 Medical Decision Making 35-year-old male presents with a long list of various symptoms over at least a few months but has noticed a chest pressure sensation over the past couple of days which prompted his ER visit. Denies recent illness or trauma. Clinically he appears well, nontoxic, neurologically intact. Blood pressure is normotensive at 123/85. Had a long discussion with both he and his partner. Multiple symptoms across various review of symptoms but very reassuring vital signs and physical examination. Given his chest pressure for a couple of days we will plan to initiate a cardiac workup however a single troponin should be sufficient given the timeline. Given his subjective weight gain will obtain a BNP although no evidence of CHF on examination. Will obtain other routine screening laboratory values including electrolytes, LFTs, thyroid studies, and urinalysis. Fortunately his laboratory values are essentially unremarkable, BNP minimally elevated at 25 although his other renal function is otherwise normal. Troponin less than 3. BNP less than 35. Electrolytes all within normal range. LFTs normal. TSH 3.01. Urinalysis unremarkable except for specific gravity minimally elevated at 1.030. Chest x-ray clear. EKG reveals multiple PVCs. Discussed workup with patient and family. He continues to do very well here in the ER, remains normotensive and neurologically intact. I do wonder if he is feeling these PVCs which in turn is creating some anxiety. During my evaluation and multiple reevaluations, every time the blood pressure cuff did recycle he was very interested and focused on the new reading and the change from the prior. We discussed that there was no obvious emergent process identified although I do believe his symptoms to be multifactorial including renal PVCs, anxiety, stress, lack of sleep, caffeine, nicotine, ect. Patient is relieved that his workup in the ER does not reveal any obvious process and he is scheduled to see his PCP on 08/31/2025. I did discuss attempting to check his blood pressure 2 or 3 times a day until then under the same circumstances and keeping a log so they can more easily evaluate a trend rather than a single blood pressure reading. We also discussed if he was to continue to have PVCs and/or chest pressure sensation that an outpatient Holter monitor may be appropriate. Both he and his spouse are very appreciative of this visit and the time that I took discussing his numerous symptoms. He was encouraged to watch for new or worsening symptoms and return immediately to the ER. Standard discharge and return precautions were provided. Patient understands, is agreeable to this plan, and has no additional questions or concerns upon discharge. This documentation was generated using REVENTIVEation system, please disregard any oddities of phrase or misspellings. Medical Records Medical records reviewed: Yes I reviewed the patient's medical records. Imaging Data Radiologic Study: Imaging: X-Ray Radiologist's impression: Chest x-ray no evidence for acute abnormality in the chest. Lab Data Lab results reviewed: Yes I reviewed the patient's lab results. Labs: Laboratory Tests Range/Units 08/18/25 08/18/25 20:55 21:30 WBC (4.4-10.8) 10^3/uL 9.22 RBC (4.36-5.78) 10^6/uL 5.04 Hgb (13.5-17.5) g/dL 14.9 Hct (40.0-50.0) % 42.6 MCV (80-95) fL 85 MCH (27.0-33.0) pg 29.6 MCHC (32.0-36.0) % 35.0 RDW (11.8-14.1) % 12.0 Plt Count (130-400) 10^3/uL 282 MPV (8.0-11.0) fL 10.1 Immature Gran % % 0.3 Neutrophils % % 60.7 Lymphocytes % % 28.6 Monocytes % % 8.5 Eosinophils % % 1.2 Basophils % % 0.7 Nucleated RBC % (0.0-0.3) % 0.0 Absolute Neutrophils (1.2-6.7) 10^3/uL 5.60 Absolute Lymphocytes (1.2-3.4) 10^3/uL 2.64 Absolute Monocytes (0.1-0.8) 10^3/uL 0.78 Absolute Eosinophils (0.0-0.7) 10^3/uL 0.11 Absolute Basophils (0.0-0.2) 10^3/uL 0.06 Sodium (136-145) mmol/L 143 Potassium (3.5-5.1) mmol/L 4.0 Chloride (98-107) mmol/L 107 Carbon Dioxide (20.0-31.0) mmol/L 26.4 Anion Gap (3-11) mmol/L 9.6 BUN (9-23) mg/dL 25 H Creatinine (0.73-1.18) mg/dL 1.11 Est GFR (CKD-EPI 2020) (mL/min/1.73m2) 75.64 Glucose (74-106) mg/dL 84 Calcium (8.3-10.6) mg/dL 9.5 Magnesium (1.6-2.6) mg/dL 2.0 Total Bilirubin (0.2-1.2) mg/dL 0.30 AST (<34) U/L 24 ALT (10-49) U/L 30 Alkaline Phosphatase (46-116) U/L 59 Troponin I (<54) ng/L < 3 NT-Pro-B Natriuret Pep (<300) pg/mL < 35 Total Protein (5.7-8.2) g/dL 7.4 Albumin (3.2-5.0) g/dL 4.7 Lipase (<53) U/L 37 TSH (0.55-4.78) uIU/mL 3.01 Urine Color (Yellow) Yellow Urine Clarity (Clear) Clear Urine pH (5-8) 6.0 Ur Specific [place] (1.005-1.025) >= 1.030 H Urine Protein (Neg-Trace) mg/dL Negative Urine Ketones (Negative) mg/dL Negative Urine Blood (Negative) Negative Urine Nitrite (Negative) Negative Urine Bilirubin (Negative) Negative Urine Urobilinogen (Up to 0.2) mg/dL 0.2 Ur Leukocyte Esterase (Negative) Negative Urine Glucose (Negative) mg/dL Negative ECG Data Attestation: I personally reviewed and interpreted this ECG (s) as follows: Interpretation: Sinus rhythm, ventricular rate of 85. PVCs. No STEMI. Please see official report by Dr. Sosa. 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) Low back pain due to bilateral sciatica (Acute) Chronic pain in right shoulder (Acute) Adult ADHD (Acute) Elevated BP without diagnosis of hypertension (Acute) Anxiety (Acute 10/28/17) Atopic dermatitis (Chronic) Depression (Chronic) Headache (Acute) Obesity due to excess calories (Acute) improving with diet change Mild obstructive sleep apnea (Chronic) using CPAP - forgets Medical History 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) Insomnia (10/28/17) Family History Father Stroke Maternal Grandfather Cancer Paternal Grandfather Alcohol use disorder Maternal Grandmother Diabetes Social History Smoking/Tobacco Use Status: Current every day Tobacco Type: smokeless tobacco Tobacco: How many years used: 11 Smokeless tobacco user: chewing tobacco and snuff Quit status: has quit before Second Hand Exposure: No Counseling given: provider counseling Smoking risk assessment performed?: Yes Alcohol Intake: current Alcohol Intake frequency: holidays/special occasions only Alcohol type: beer and hard liquor Details: 6 or more drinks monthly or less Drug use: Never Substance use type: does not use Adopted: No Caregiver/Support person: No Household members: spouse and children Housing: house Number of Children: 2 Communication Needs: None Education Level: college Details: BS in criminal justice Do you need help understanding health information?: Rarely 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 Pets and animals: Yes Pets and animals: cat(s) and dog(s) Sexually active: Yes Do you think of yourself as: straight/heterosexual Current gender identity: male What is your relationship status?: How often do you talk on the phone with friends or family?: three or more times per week How often do you get together with friends or relatives?: twice per week How often do you attend jehovah's witness or bahai services?: 1-3 times per year Do you belong to any clubs or organized social groups?: no Panel score (0-1 are the most socially isolated patients): 2 What type of physical activity do you participate in: weight lifting and other Details: Hunting Duration: 30-45 minutes/day Frequency: 3-4 times per week Shara/Denominational: [employer]ian Special shara needs: No Seatbelt use: sometimes Helmet use: No Drive intox or ride w/intox sanitation truck driver: No Firearms in home: Yes Firearms unloaded and locked: Yes Do you feel safe at home: Yes Do you feel safe in your relationship?: Yes Victim of physical abuse: No Victim of emotional abuse: No Victim of sexual abuse: No Would you like helpful sources: No PAWSS Have you Been Recently Intoxicated or Drunk Within the Last 30 days?: No Have you Ever Experienced Previous Episodes of Alcohol Withdrawal?: No Have you ever Experienced Withdrawal Seizures?: No Have you ever Experienced Delirium Tremens(DT)s?: No Have you ever undergone Alcohol Rehabilitation Treatment (i.e, inpt ot outpatient treatment programs)?: No Have you ever Experienced Blackouts?: No Have you ever Combined Alcohol with other Downers within the last 90 days?: No Have you ever Combined Alcohol with any other Substance of Abuse during the last 90 days?: No Positive Blood Alcohol level on Presentation? [PCS.BAL]: No Evidence of Increased Autonomic Activity (i.e. HR>120, tremor, sweating, agitation, nausea)?: No Result: 0
[2025-08-18 21:37] LABS: Abs Immature Grans 0.03 10^3/uL (0.0-0.06); HCT 42.6 % (40.0-50.0); HGB 14.9 g/dL (13.5-17.5); Immature Grans % 0.3 %; MCH 29.6 pg (27.0-33.0); MCHC 35.0 % (32.0-36.0); MCV 85 fL (80-95); MPV 10.1 fL (8.0-11.0); Platelet Count 282 10^3/uL (130-400); RBC 5.04 10^6/uL (4.36-5.78); RDW 12.0 % (11.8-14.1); RDW-SD 36.8 fL; WBC 9.22 10^3/uL (4.4-10.8)
--- NOTE | 2025-08-18 21:38 | DI.RAD_ITS ---
Exam(s) XR PORTABLE CHEST AP EXAM: XR PORTABLE CHEST AP CLINICAL HISTORY: Chest pain. TECHNIQUE: 2D digital imaging was performed. COMPARISON: CR,RF RF BARIUM SWALLOW from 11/26/2023 FINDINGS: Single AP portable view. Mild cardiomegaly again noted. Lungs are clear. No infiltrates nor obvious pleural effusions. No pulmonary edema IMPRESSION: No acute pulmonary findings on this single AP portable view of the chest. DATA REPOSITORY: RADIATION DOSE DELIVERED:
[2025-08-18 21:48] LABS: Glucose Negative (Negative)
--- NOTE | 2025-08-18 21:54 | DI.VRAD_ITS ---
PROCEDURE INFORMATION: Exam: XR Chest Exam date and time: 08/18/2025 9:33 PM Age: 35 years old Clinical indication: Chest pressure; Chest pain TECHNIQUE: Imaging protocol: Radiologic exam of the chest. Views: 1 view. Other technique: Portable exam. COMPARISON: CR XR CLAVICLE LT LIMITED 1V 07/13/2025 9:14 AM FINDINGS: Lungs: Unremarkable. No consolidation. Pleural spaces: Unremarkable. No pleural effusion. No pneumothorax. Heart/Mediastinum: Cardiomegaly. Bones/joints: Unremarkable. IMPRESSION: No evidence for acute abnormality in the chest. Dictated and Authenticated by: Brigida Schreiber MD. Orderin Analisa Patel MD
[2025-08-18 22:01] LABS: Lipase 37 U/L (<53); Magnesium 2.0 mg/dL (1.6-2.6)
[2025-08-18 22:03] LABS: ALT 30 U/L (10-49); AST 24 U/L (<34); Albumin 4.7 g/dL (3.2-5.0); Alkaline Phosphatase 59 U/L (46-116); Anion Gap 9.6 mmol/L (3-11); BUN 25 mg/dL (9-23); Bilirubin, Total 0.30 mg/dL (0.2-1.2); CO2 26.4 mmol/L (20.0-31.0); Calcium 9.5 mg/dL (8.3-10.6); Chloride 107 mmol/L (98-107); Glucose 84 mg/dL (74-106); Potassium 4.0 mmol/L (3.5-5.1); Sodium 143 mmol/L (136-145); Total Protein 7.4 g/dL (5.7-8.2)
[2025-08-18 22:06] LABS: TSH (W/Ref FT4) 3.01 uIU/mL (0.55-4.78)
[2025-08-18 22:23] LABS: Troponin I < 3 ng/L (<54)
--- NOTE | 2025-08-20 09:09 | NUR.NOTE ---
Access chart to reconcile EKG orders with EKG's in [facility]. Nursing Note:
== END 2025-08-18 22:51 | disposition home or self-care (01) ==
PROVIDERS: Emergency Provider Physician Assistant; PCP Family Medicine
DX: R42 Dizziness and giddiness (principal); I49.3 Ventricular premature depolarization; Z59.811 Housing instability, housed, with risk of homelessness
CPT/HCPCS: 99283; 99284; 36415; 80053; 83690; 93005; 71045; 81003; 83735; 83880; 84443; 84484; 85025; 93010

== ENCOUNTER 2025-08-26 09:36 | Outpatient (CLI) | payer BC, SELFPAY ==
[2025-08-26 14:50] LABS: ESR < 1 mm/hr (0-15)
[2025-08-26 15:07] LABS: Cholesterol 204 mg/dL (<200); HDL Cholesterol 48 mg/dL (>40)
[2025-08-26 15:09] LABS: C-Reactive Protein < 0.50 mg/dL (<=0.50)
[2025-08-27 02:21] LABS: HIV-1/2 Ag & Ab Screen Negative (Negative)
[2025-08-29 10:59] LABS: Hepatitis C Ab w Rflx HCV PCR Negative (Negative)
== END 2025-08-26 09:37 | disposition home or self-care (01) ==
PROVIDERS: PCP Family Medicine; Visit Provider Family Medicine
DX: Z13.6 Encounter for screening for cardiovascular disorders (principal); R53.83 Other fatigue; Z11.59 Encounter for screening for other viral diseases; Z11.4 Encounter for screening for human immunodeficiency virus [HIV]
CPT/HCPCS: 36415; 80061; 85652; 86803; 87389; 86140